=== PATIENT | male | born 1990 | race Caucasian/White ===

== ENCOUNTER 2021-04-11 10:42 | Emergency (ER) | payer MEDICAID, OTHER ==
[~2021-04-11] VITALS: Ht 175.3 cm; Wt 73.2 kg
[2021-04-11 10:44] VITALS: BP 124/68
== END 2021-04-11 14:03 | disposition home or self-care (01) ==
LOC: EMS 10:49
DX: S62.145A Nondisplaced fracture of body of hamate [unciform] bone, left wrist, initial encounter for closed fracture (principal); S50.12XA Contusion of left forearm, initial encounter; F17.210 Nicotine dependence, cigarettes, uncomplicated; F12.90 Cannabis use, unspecified, uncomplicated; V00.131A Fall from skateboard, initial encounter; Y93.51 Activity, roller skating (inline) and skateboarding; Y92.89 Other specified places as the place of occurrence of the external cause; Y99.8 Other external cause status
CPT/HCPCS: 99283

== ENCOUNTER 2024-12-25 18:58 | Emergency (ER) | payer MEDICAID ==
[~2024-12-25] VITALS: Ht 175.3 cm; Wt 72.7 kg
[2024-12-25 19:02] VITALS: BP 134/84; PULSE 68; RESP 16; TEMP 98.2; O2SAT 99
== END 2024-12-25 23:29 | disposition left against medical advice (07) ==
LOC: EMS 19:05
DX: F41.9 Anxiety disorder, unspecified (principal); Z53.21 Procedure and treatment not carried out due to patient leaving prior to being seen by health care provider

== ENCOUNTER 2024-12-30 13:38 | Emergency (ER) | payer MEDICAID ==
[~2024-12-30] VITALS: Ht 175.3 cm; Wt 68.2 kg
[2024-12-30 13:41] VITALS: BP 123/77; PULSE 62; RESP 16; TEMP 98.6; O2SAT 100
== END 2024-12-30 15:51 | disposition left against medical advice (07) ==
LOC: EMS 13:38
DX: F41.9 Anxiety disorder, unspecified (principal); Z53.21 Procedure and treatment not carried out due to patient leaving prior to being seen by health care provider

== ENCOUNTER 2024-12-30 17:45 | Emergency (ER) | payer MEDICAID ==
[~2024-12-30] VITALS: Ht 175.3 cm; Wt 68.8 kg
[2024-12-30 17:53] VITALS: BP 128/81; PULSE 70; RESP 16; TEMP 98.4; O2SAT 98
[2024-12-30 18:27] LABS: BASOPHILS % (AUTO) 0.5 % (0.0-2.0); EOSINOPHILS % (AUTO) 3.1 % (1.0-6.0); HEMATOCRIT 38.6 % (41-53); HEMOGLOBIN 13.1 g/dL (13.5-17.5); LYMPHOCYTES # (AUTO) 1.4 K/uL (1.0-4.8); LYMPHOCYTES % (AUTO) 20.5 % (22.0-44.0); MEAN CORPUSCULAR HEMOGLOBIN 31.6 pg (26.0-34.0); MEAN CORPUSCULAR HGB CONC 33.9 G/dL (31.0-37.0); MEAN CORPUSCULAR VOLUME 93 fL (80-100); MONOCYTES # (AUTO) 0.3 K/uL (0.1-1.0); MONOCYTES % (AUTO) 4.6 % (2.0-9.0); NEUTROPHILS # (AUTO) 4.9 K/uL (1.8-7.7); NEUTROPHILS % (AUTO) 71.3 % (40.0-70.0); PLATELET COUNT (AUTO) 264 K/uL (150-450); RED BLOOD CELL COUNT(AUTO) 4.13 MIL/uL (4.50-5.90); RED CELL DISTRIBUTION WIDTH 13.3 % (11.5-14.5); WHITE BLOOD COUNT (AUTO) 6.9 K/uL (4.5-11.0)
[2024-12-30 18:31] LABS: ANION GAP 8 mmol/L (8-16); CARBON DIOXIDE 28 mmol/L (22-29); CHLORIDE 100 mmol/L (98-107); GLOMERULAR FILTR. RATE CALC > 60 mL/min (>60); GLUCOSE,RANDOM 80 mg/dL (70-110); POTASSIUM 3.6 mmol/L (3.5-5.1); SODIUM SERUM 136 mmol/L (136-145); UREA NITROGEN, BLOOD 13 mg/dL (7-18)
[2024-12-30 18:40] LABS: ALCOHOL, BLOOD (SERUM) < 3 mg/dL (0-10)
== END 2024-12-30 19:00 | disposition home or self-care (01) ==
LOC: EMS 17:45
DX: F41.9 Anxiety disorder, unspecified (principal); F84.0 Autistic disorder; F17.210 Nicotine dependence, cigarettes, uncomplicated
CPT/HCPCS: 99283; 80048; 85025; G0480

== ENCOUNTER 2024-12-30 21:17 | Emergency (ER) | payer MEDICAID ==
[~2024-12-30] VITALS: Ht 175.3 cm; Wt 68.0 kg
[2024-12-30 21:25] VITALS: BP 141/83; PULSE 75; RESP 16; TEMP 97.4; O2SAT 98
== END 2024-12-30 21:36 | disposition left against medical advice (07) ==
LOC: EMS 21:17
DX: F41.9 Anxiety disorder, unspecified (principal); Z53.21 Procedure and treatment not carried out due to patient leaving prior to being seen by health care provider

== ENCOUNTER 2025-01-05 17:42 | Emergency (ER) | payer MEDICAID ==
[~2025-01-05] VITALS: Ht 175.3 cm; Wt 68.0 kg
[2025-01-05 18:04] VITALS: BP 159/80; PULSE 76; RESP 18; TEMP 98.4; O2SAT 98
[2025-01-05 18:40] LABS: BASOPHILS % (AUTO) 0.7 % (0.0-2.0); EOSINOPHILS % (AUTO) 2.9 % (1.0-6.0); HEMATOCRIT 37.4 % (41-53); HEMOGLOBIN 12.7 g/dL (13.5-17.5); LYMPHOCYTES # (AUTO) 1.5 K/uL (1.0-4.8); LYMPHOCYTES % (AUTO) 18.1 % (22.0-44.0); MEAN CORPUSCULAR HEMOGLOBIN 32.3 pg (26.0-34.0); MEAN CORPUSCULAR VOLUME 95 fL (80-100); MONOCYTES # (AUTO) 0.5 K/uL (0.1-1.0); MONOCYTES % (AUTO) 5.6 % (2.0-9.0); NEUTROPHILS # (AUTO) 5.9 K/uL (1.8-7.7); NEUTROPHILS % (AUTO) 72.7 % (40.0-70.0); PLATELET COUNT (AUTO) 273 K/uL (150-450); RED BLOOD CELL COUNT(AUTO) 3.93 MIL/uL (4.50-5.90); RED CELL DISTRIBUTION WIDTH 13.9 % (11.5-14.5); WHITE BLOOD COUNT (AUTO) 8.1 K/uL (4.5-11.0)
[2025-01-05 18:46] LABS: ANION GAP 1 mmol/L (8-16); CALCIUM, TOTAL 8.2 mg/dL (8.8-10.5); CARBON DIOXIDE 31 mmol/L (22-29); CHLORIDE 107 mmol/L (98-107); CREATININE 0.79 mg/dL (0.60-1.30); GLOMERULAR FILTR. RATE CALC > 60 mL/min (>60); GLUCOSE,RANDOM 83 mg/dL (70-110); SODIUM SERUM 139 mmol/L (136-145); UREA NITROGEN, BLOOD 13 mg/dL (7-18)
[2025-01-05 18:54] LABS: TROPONIN I-HIGH SENSITIVITY 5 ng/L (<76)
== END 2025-01-05 20:32 | disposition home or self-care (01) ==
LOC: EMS 17:42
DX: R07.9 Chest pain, unspecified (principal)
CPT/HCPCS: 99284; 80048; 84484; 85025; 36415; 93005; G0480

== ENCOUNTER 2025-01-05 20:44 | Inpatient (IN) | payer MEDICAID ==
[~2025-01-05] VITALS: Ht 172.7 cm; Wt 77.0 kg
[2025-01-05 22:26] LABS: GLUCOMETER DEV NAME(LOC) POC.BV; POC SARS-COV2 AG, FIA NEGATIVE (NEGATIVE)
[2025-01-05] MEDS ORDERED: ZOLPIDEM TARTRATE 10 MG TABLET PO PRN (23:00)
[2025-01-06 00:37] VITALS: BP 120/85; PULSE 65; RESP 18; TEMP 97.2; O2SAT 100
[2025-01-06 00:40] VITALS: BP 120/85; PULSE 65; RESP 18; TEMP 97.2; O2SAT 100
[2025-01-06 01:39] VITALS: BP 133/84; PULSE 78; RESP 19; TEMP 97.8; O2SAT 97
[2025-01-06 08:10] VITALS: BP 120/72; PULSE 67; RESP 16; TEMP 97.5; O2SAT 100
[2025-01-06 20:22] VITALS: BP 142/80; PULSE 81; RESP 18; TEMP 98.2; O2SAT 94
[2025-01-06] MEDS ORDERED: ONDANSETRON 4 MG TABLET PO PRN (21:15)
[2025-01-06] MEDS ORDERED: ACETAMINOPHEN 325 MG TABLET PO PRN (21:15)
[2025-01-06] MEDS ORDERED: DOCUSATE SODIUM 100 MG CAPSULE PO PRN (21:15)
[2025-01-06] MEDS ORDERED: LOPERAMIDE HCL 2 MG CAPSULE PO PRN (21:15)
[2025-01-06] MEDS ORDERED: BACITRACIN 28 GM OINTMENT TP PRN (21:15)
[2025-01-06] MEDS ORDERED: OMEPRAZOLE 20 MG CAPSULE PO PRN (21:15)
[2025-01-06] MEDS ORDERED: CloNIDine HCL 0.1 MG TABLET PO PRN (21:15)
[2025-01-06] MEDS ORDERED: BENZOCAINE/MENTHOL [CEPACOL] LOZENGE PO PRN (21:15)
[2025-01-06] MEDS ORDERED: ALBUTEROL SULFATE HFA 90 MCG/PUFF 8 GM INHALER IH PRN (21:15)
[2025-01-06] MEDS ORDERED: MAGNESIUM HYDROXIDE SUSPENSION 30 ML UDCUP PO PRN (21:15)
[2025-01-06] MEDS ORDERED: PETROLATUM,WHITE 28 GM JELLY TP PRN (21:15)
[2025-01-06] MEDS ORDERED: IBUPROFEN 600 MG TABLET PO PRN (21:15)
[2025-01-07 08:08] VITALS: BP 117/66; PULSE 60; RESP 16; TEMP 97.3; O2SAT 97
[2025-01-07 08:53] LABS: APPEARANCE,URINE CLEAR (CLEAR); BILIRUBIN,URINE NEGATIVE (NEGATIVE); COLOR,URINE COLORLESS (YELLOW); GLUCOSE, URINE (UA) NEGATIVE (NEGATIVE); KETONES,URINE NEGATIVE (NEGATIVE); LEUKOCYTE ESTERASE ,URINE NEGATIVE (NEGATIVE); NITRATE,URINE NEGATIVE (NEGATIVE); OCCULT BLOOD,URINE NEGATIVE (NEGATIVE); PROTEIN,URINE NEGATIVE (NEGATIVE); SPECIFIC GRAVITIY, URINE 1.007 (1.003-1.030); UROBILINOGEN,URINE <=1.0 mg/dL (<=1.0)
[2025-01-07 08:59] LABS: AMPHET/METH SCREEN,URINE NEGATIVE (NEGATIVE); BARBITURATE SCREEN, URINE NEGATIVE (NEGATIVE); BENZODIAZEPINES SCREEN,URINE NEGATIVE (NEGATIVE); CANNABINOID SCREEN,URINE NEGATIVE (NEGATIVE); COCAINE SCREEN,URINE NEGATIVE (NEGATIVE); METHADONE SCREEN, URINE NEGATIVE (NEGATIVE); OPIATE SCREEN,URINE NEGATIVE (NEGATIVE); PHENCYCLIDINE SCREEN,URINE NEGATIVE (NEGATIVE)
[2025-01-07 09:03] LABS: ALCOHOL, URINE DRUG SCREEN NEGATIVE (NEGATIVE)
[2025-01-07 20:13] VITALS: BP 136/75; PULSE 78; RESP 18; TEMP 97.4; O2SAT 98
[2025-01-08] MEDS: HALOPERIDOL 5 MG TABLET PO PRN (08:21)
[2025-01-08] MEDS: LORazepam 2 MG TABLET PO PRN (08:21)
[2025-01-08 08:37] VITALS: BP 117/68; PULSE 72; RESP 17; TEMP 97.2; O2SAT 97
[2025-01-08] MEDS: FLUoxetine HCL 20 MG CAPSULE PO SCH (09:29)
[2025-01-08] MEDS: DIVALPROEX SODIUM 500 MG DR TABLET PO SCH (09:29)
[2025-01-08 20:19] VITALS: BP 139/78; PULSE 79; RESP 17; TEMP 98.6
[2025-01-08] MEDS: OLANZapine 7.5 MG TABLET PO SCH (20:29)
[2025-01-09 08:02] VITALS: BP 103/62; PULSE 64; RESP 18; TEMP 97.7; O2SAT 98
[2025-01-09] MEDS: MAG HYDROX/ALUMINUM HYD/SIMETH ES 30 ML SUSPENSION UDCUP PO PRN (18:54)
[2025-01-09 20:32] VITALS: BP 130/75; PULSE 67; RESP 18; TEMP 98.3; O2SAT 99
[2025-01-10 08:22] VITALS: BP 100/68; PULSE 70; RESP 17; TEMP 97.5; O2SAT 98
[2025-01-10 20:32] VITALS: BP 120/75; PULSE 79; RESP 18; TEMP 97.5; O2SAT 100
[2025-01-11 08:09] VITALS: BP 112/65; PULSE 61; RESP 17; TEMP 97.5; O2SAT 99
[2025-01-11] MEDS ORDERED: DIVA-153 PO (09:26)
[2025-01-11] MEDS ORDERED: FLUO-418 PO (09:27)
[2025-01-11] MEDS ORDERED: OLAN7.5T22 PO (09:27)
== END 2025-01-11 11:20 | disposition home or self-care (01) | DRG 750 ==
LOC: B3A 22:46
PROVIDERS: ADMIT Psychiatry & Neurology Psychiatry; ATTEND Psychiatry & Neurology Psychiatry
PROC: GZHZZZZ Group Psychotherapy (ICD-10-PCS; principal; 2025-01-08)
PROC: GZ51ZZZ Individual Psychotherapy, Behavioral (ICD-10-PCS; 2025-01-08)
DX: F20.0 Paranoid schizophrenia (principal); F12.90 Cannabis use, unspecified, uncomplicated; F41.9 Anxiety disorder, unspecified; G47.00 Insomnia, unspecified; Z20.822 Contact with and (suspected) exposure to COVID-19; F84.0 Autistic disorder; F17.200 Nicotine dependence, unspecified, uncomplicated; F32.9 Major depressive disorder, single episode, unspecified
CPT/HCPCS: 80307; 81003

== ENCOUNTER 2025-01-11 18:52 | Inpatient (IN) | payer MEDICAID ==
[~2025-01-11] VITALS: Ht 175.3 cm; Wt 77.1 kg
[~2025-01-11 18:52] MED LIST: DIVA-153 PO; FLUO-418 PO; OLAN7.5T22 PO
[2025-01-11] MEDS: DIVALPROEX SODIUM 250 MG DR TABLET PO SCH (21:00)
[2025-01-11] MEDS: OLANZapine 7.5 MG TABLET PO SCH (21:00)
[2025-01-11 21:53] VITALS: BP 130/76; PULSE 80; RESP 16; TEMP 97.7; O2SAT 99
[2025-01-11 23:21] LABS: GLUCOMETER DEV NAME(LOC) POC.BV; POC SARS-COV2 AG, FIA NEGATIVE (NEGATIVE)
[2025-01-12] MEDS: LevETIRAcetam 500 MG TABLET PO SCH (08:18)
[2025-01-12] MEDS: NALTREXONE HCL 50 MG TABLET PO SCH (08:19)
[2025-01-12] MEDS: FLUoxetine HCL 20 MG CAPSULE PO SCH (08:19)
[2025-01-12 08:24] VITALS: BP 117/62; PULSE 62; RESP 18; TEMP 97.7; O2SAT 100
[2025-01-12 20:03] VITALS: BP 107/71; PULSE 65; RESP 18; TEMP 98.1; O2SAT 100
[2025-01-12] MEDS: LORazepam 2 MG TABLET PO PRN (21:27)
[2025-01-12] MEDS: ZOLPIDEM TARTRATE 10 MG TABLET PO PRN (21:28)
[2025-01-12] MEDS: HALOPERIDOL 5 MG TABLET PO PRN (21:28)
[2025-01-13 08:38] VITALS: BP 133/90; PULSE 77; RESP 17; TEMP 97.1; O2SAT 100
[2025-01-13] MEDS ORDERED: IBUPROFEN 600 MG TABLET PO PRN (11:45)
[2025-01-13] MEDS ORDERED: BACITRACIN 28 GM OINTMENT TP PRN (11:45)
[2025-01-13] MEDS ORDERED: CloNIDine HCL 0.1 MG TABLET PO PRN (11:45)
[2025-01-13] MEDS ORDERED: MAGNESIUM HYDROXIDE SUSPENSION 30 ML UDCUP PO PRN (11:45)
[2025-01-13] MEDS ORDERED: ONDANSETRON 4 MG TABLET PO PRN (11:45)
[2025-01-13] MEDS ORDERED: OMEPRAZOLE 20 MG CAPSULE PO PRN (11:45)
[2025-01-13] MEDS ORDERED: PETROLATUM,WHITE 28 GM JELLY TP PRN (11:45)
[2025-01-13] MEDS ORDERED: LOPERAMIDE HCL 2 MG CAPSULE PO PRN (11:45)
[2025-01-13] MEDS ORDERED: ACETAMINOPHEN 325 MG TABLET PO PRN (11:45)
[2025-01-13] MEDS ORDERED: MAG HYDROX/ALUMINUM HYD/SIMETH ES 30 ML SUSPENSION UDCUP PO PRN (11:45)
[2025-01-13] MEDS ORDERED: ALBUTEROL SULFATE HFA 90 MCG/PUFF 8 GM INHALER IH PRN (11:45)
[2025-01-13] MEDS ORDERED: DOCUSATE SODIUM 100 MG CAPSULE PO PRN (11:45)
[2025-01-13] MEDS ORDERED: BENZOCAINE/MENTHOL [CEPACOL] LOZENGE PO PRN (11:45)
[2025-01-13 20:22] VITALS: BP 113/68; PULSE 77; RESP 17; TEMP 97.3; O2SAT 98
[2025-01-14 08:09] VITALS: BP 123/78; PULSE 61; RESP 18; TEMP 97.1; O2SAT 97
[2025-01-14 21:00] VITALS: BP 124/71; PULSE 69; RESP 17; TEMP 98.1; O2SAT 98
[2025-01-15 08:06] VITALS: BP 113/75; PULSE 64; RESP 15; TEMP 97.9; O2SAT 100
[2025-01-15 20:06] VITALS: BP 133/69; PULSE 70; RESP 16; TEMP 97.8; O2SAT 100
[2025-01-16 07:53] VITALS: BP 118/75; PULSE 76; RESP 18; TEMP 97.5; O2SAT 99
[2025-01-16 08:06] VITALS: BP 118/75; PULSE 76; RESP 18; TEMP 97.5; O2SAT 99
[2025-01-16 09:31] LABS: BASOPHILS % (AUTO) 0.4 % (0.0-2.0); EOSINOPHILS % (AUTO) 2.7 % (1.0-6.0); HEMOGLOBIN 13.4 g/dL (13.5-17.5); LYMPHOCYTES # (AUTO) 1.1 K/uL (1.0-4.8); LYMPHOCYTES % (AUTO) 13.5 % (22.0-44.0); MEAN CORPUSCULAR HEMOGLOBIN 32.2 pg (26.0-34.0); MEAN CORPUSCULAR HGB CONC 33.4 G/dL (31.0-37.0); MEAN CORPUSCULAR VOLUME 96 fL (80-100); MONOCYTES # (AUTO) 0.6 K/uL (0.1-1.0); MONOCYTES % (AUTO) 6.7 % (2.0-9.0); NEUTROPHILS # (AUTO) 6.4 K/uL (1.8-7.7); NEUTROPHILS % (AUTO) 76.7 % (40.0-70.0); PLATELET COUNT (AUTO) 223 K/uL (150-450); RED BLOOD CELL COUNT(AUTO) 4.15 MIL/uL (4.50-5.90); RED CELL DISTRIBUTION WIDTH 14.2 % (11.5-14.5); WHITE BLOOD COUNT (AUTO) 8.4 K/uL (4.5-11.0)
[2025-01-16 20:23] VITALS: BP 131/76; PULSE 85; RESP 17; TEMP 98.2; O2SAT 95
[2025-01-17 09:04] VITALS: BP 109/69; PULSE 65; RESP 17; TEMP 96.9; O2SAT 98
[2025-01-17 20:14] VITALS: BP 134/86; PULSE 91; RESP 17; TEMP 98; O2SAT 99
[2025-01-18 08:01] VITALS: BP 113/72; PULSE 67; RESP 18; TEMP 97.5; O2SAT 100
[2025-01-18 20:06] VITALS: BP 117/74; PULSE 76; RESP 16; TEMP 96.2; O2SAT 100
[2025-01-19 09:25] VITALS: BP 112/72; PULSE 71; RESP 17; TEMP 97.7; O2SAT 100
[2025-01-19 20:38] VITALS: BP 117/78; PULSE 72; RESP 17; TEMP 97.5; O2SAT 100
[2025-01-20 08:04] VITALS: BP 121/74; PULSE 67; RESP 18; TEMP 98.1; O2SAT 98
[2025-01-20 20:10] VITALS: BP 125/75; PULSE 79; RESP 17; TEMP 97.3; O2SAT 100
[2025-01-21 08:20] VITALS: BP 113/72; PULSE 65; RESP 16; TEMP 98.1; O2SAT 97
[2025-01-21 20:08] VITALS: BP 121/77; PULSE 67; RESP 17; TEMP 97.1; O2SAT 100
[2025-01-22 20:11] VITALS: BP 119/68; PULSE 75; RESP 18; TEMP 97.9; O2SAT 97
[2025-01-23 09:56] VITALS: BP 129/71; PULSE 89; RESP 16; TEMP 97.5; O2SAT 99
[2025-01-23 20:09] VITALS: BP 124/81; PULSE 60; RESP 18; TEMP 98; O2SAT 100
[2025-01-24 08:41] VITALS: BP 123/79; PULSE 71; RESP 18; TEMP 97.2; O2SAT 97
[2025-01-24 21:08] VITALS: BP 127/82; PULSE 83; RESP 18; TEMP 97.7
[2025-01-25 08:03] VITALS: BP 139/68; PULSE 61; RESP 16; TEMP 98.3; O2SAT 100
[2025-01-25 20:05] VITALS: BP 129/81; PULSE 60; RESP 16; TEMP 97.4; O2SAT 100
[2025-01-26 08:29] VITALS: BP 123/79; PULSE 61; RESP 18; TEMP 97.4; O2SAT 100
[2025-01-26 20:49] VITALS: BP 110/75; PULSE 73; RESP 17; TEMP 97.3; O2SAT 99
[2025-01-27 12:46] VITALS: BP 119/71; PULSE 66; RESP 16; TEMP 98.2; O2SAT 99
[2025-01-28] MEDS: INFLUENZA VIRUS VACCINE TVS (6MO+) 2024-25/PF 45 MCG/0.5 ML SYRINGE IM. ONE (06:30)
[2025-01-28 10:23] VITALS: BP 101/71; PULSE 53; RESP 18; TEMP 97.2; O2SAT 100
[2025-01-28 20:36] VITALS: BP 105/71; PULSE 61; RESP 15; TEMP 97.5; O2SAT 100
[2025-01-29 09:14] VITALS: BP 114/76; PULSE 64; RESP 17; TEMP 97.3; O2SAT 100
[2025-01-29] MEDS ORDERED: LEVE-71 PO (12:29)
[2025-01-29] MEDS ORDERED: NALT50TA33 PO (12:30)
== END 2025-01-29 16:29 | disposition home or self-care (01) | DRG 750 ==
LOC: B3A 19:34
PROVIDERS: ADMIT Psychiatry & Neurology Psychiatry; ATTEND Psychiatry & Neurology Psychiatry
DX: F25.9 Schizoaffective disorder, unspecified (principal); F15.10 Other stimulant abuse, uncomplicated; Z71.6 Tobacco abuse counseling; F32.A Depression, unspecified; Z20.822 Contact with and (suspected) exposure to COVID-19; F17.200 Nicotine dependence, unspecified, uncomplicated; F41.9 Anxiety disorder, unspecified; G47.00 Insomnia, unspecified; F84.0 Autistic disorder; F94.0 Selective mutism; Z53.20 Procedure and treatment not carried out because of patient's decision for unspecified reasons
CPT/HCPCS: 85025

== ENCOUNTER 2025-01-31 16:31 | Inpatient (IN) | payer MEDICAID ==
[~2025-01-31] VITALS: Ht 175.3 cm; Wt 79.9 kg
[~2025-01-31 16:31] MED LIST changes: +LEVE-71 PO; +NALT50TA33 PO
[2025-01-31 17:08] LABS: COVID AG,FIA SOURCE NASAL SWAB
[2025-01-31 17:30] LABS: SARS-COV2 (COVID) ANTIGEN,FIA Negative (Negative)
[2025-02-01 02:32] VITALS: O2SAT 99
[2025-02-01 04:57] VITALS: BP 125/85; PULSE 61; RESP 18; TEMP 97.9
[2025-02-01 08:06] VITALS: BP 122/76; PULSE 77; RESP 16; TEMP 97.6; O2SAT 100
[2025-02-01] MEDS: LevETIRAcetam 500 MG TABLET PO SCH (16:07)
[2025-02-01 20:15] VITALS: BP 117/60; PULSE 65; RESP 16; TEMP 97.6; O2SAT 97
[2025-02-01] MEDS: DIVALPROEX SODIUM 500 MG ER TABLET PO SCH (20:22)
[2025-02-01] MEDS: OLANZapine 7.5 MG TABLET PO SCH (20:23)
[2025-02-02] MEDS: NALTREXONE HCL 50 MG TABLET PO SCH (08:21)
[2025-02-02] MEDS: FLUoxetine HCL 20 MG CAPSULE PO SCH (08:22)
[2025-02-02 08:42] VITALS: BP 127/73; PULSE 60; RESP 17; TEMP 97.6; O2SAT 100
[2025-02-02 20:29] VITALS: BP 120/70; PULSE 68; RESP 17; TEMP 97.4; O2SAT 100
[2025-02-02] MEDS: LORazepam 2 MG TABLET PO PRN (21:31)
[2025-02-02] MEDS: HALOPERIDOL 5 MG TABLET PO PRN (21:31)
[2025-02-02] MEDS: ZOLPIDEM TARTRATE 10 MG TABLET PO PRN (21:31)
[2025-02-03 08:12] VITALS: BP 110/59; PULSE 64; RESP 18; TEMP 98; O2SAT 97
[2025-02-03 20:05] VITALS: BP 116/75; PULSE 83; RESP 18; TEMP 97.8; O2SAT 93
[2025-02-03] MEDS ORDERED: BACITRACIN 28 GM OINTMENT TP PRN (20:45)
[2025-02-03] MEDS ORDERED: ACETAMINOPHEN 325 MG TABLET PO PRN (20:45)
[2025-02-03] MEDS ORDERED: LOPERAMIDE HCL 2 MG CAPSULE PO PRN (20:45)
[2025-02-03] MEDS ORDERED: ONDANSETRON 4 MG TABLET PO PRN (20:45)
[2025-02-03] MEDS ORDERED: MAG HYDROX/ALUMINUM HYD/SIMETH ES 30 ML SUSPENSION UDCUP PO PRN (20:45)
[2025-02-03] MEDS ORDERED: CloNIDine HCL 0.1 MG TABLET PO PRN (20:45)
[2025-02-03] MEDS ORDERED: ALBUTEROL SULFATE HFA 90 MCG/PUFF 8 GM INHALER IH PRN (20:45)
[2025-02-03] MEDS ORDERED: PETROLATUM,WHITE 28 GM JELLY TP PRN (20:45)
[2025-02-03] MEDS ORDERED: BENZOCAINE/MENTHOL [CEPACOL] LOZENGE PO PRN (20:45)
[2025-02-03] MEDS ORDERED: MAGNESIUM HYDROXIDE SUSPENSION 30 ML UDCUP PO PRN (20:45)
[2025-02-03] MEDS ORDERED: DOCUSATE SODIUM 100 MG CAPSULE PO PRN (20:45)
[2025-02-03] MEDS ORDERED: OMEPRAZOLE 20 MG CAPSULE PO PRN (20:45)
[2025-02-03] MEDS ORDERED: IBUPROFEN 600 MG TABLET PO PRN (20:45)
[2025-02-04 06:03] VITALS: RESP 18
[2025-02-04 08:03] VITALS: RESP 16
[2025-02-04 12:19] VITALS: RESP 16
[2025-02-04 20:36] VITALS: BP 128/77; PULSE 76; RESP 16; TEMP 98.2; O2SAT 99
[2025-02-05 08:38] VITALS: BP 113/69; PULSE 64; RESP 17; TEMP 97.6; O2SAT 98
[2025-02-05 20:29] VITALS: BP 124/75; PULSE 74; RESP 16; TEMP 97.4; O2SAT 98
[2025-02-06 08:07] VITALS: BP 117/70; PULSE 76; RESP 16; TEMP 97.5; O2SAT 99
[2025-02-06 20:18] VITALS: BP 111/72; PULSE 57; RESP 17; TEMP 97.4; O2SAT 99
[2025-02-07 08:47] VITALS: BP 117/70; PULSE 68; RESP 17; TEMP 97.7; O2SAT 98
[2025-02-07 20:02] VITALS: BP 129/79; PULSE 73; RESP 16; TEMP 97.3; O2SAT 97
[2025-02-08 08:05] VITALS: BP 111/70; PULSE 60; RESP 17; TEMP 97.9; O2SAT 99
[2025-02-08 20:26] VITALS: BP 146/77; PULSE 71; RESP 16; TEMP 97.7; O2SAT 98
[2025-02-09 08:43] VITALS: BP 119/66; PULSE 63; RESP 18; TEMP 97.6; O2SAT 99
[2025-02-09 20:06] VITALS: BP 120/73; PULSE 63; RESP 17; TEMP 98.1; O2SAT 97
[2025-02-10 08:07] VITALS: BP 139/83; PULSE 60; RESP 18; TEMP 97.6; O2SAT 100
[2025-02-10 20:25] VITALS: BP 104/69; PULSE 77; RESP 17; TEMP 97.1; O2SAT 100
[2025-02-11 08:22] VITALS: BP 119/82; PULSE 60; RESP 14; TEMP 97.3; O2SAT 100
[2025-02-12 08:46] VITALS: BP 122/80; PULSE 58; RESP 17; TEMP 97.3; O2SAT 99
[2025-02-12 20:44] VITALS: BP 123/84; PULSE 60; RESP 16; TEMP 97.3; O2SAT 100
[2025-02-13 08:43] VITALS: BP 115/69; PULSE 60; RESP 18; TEMP 97.4; O2SAT 99
[2025-02-13 20:29] VITALS: BP 121/76; PULSE 77; RESP 18; TEMP 97.5; O2SAT 99
[2025-02-14 08:32] VITALS: BP 117/74; PULSE 69; RESP 17; TEMP 97.4; O2SAT 99
[2025-02-14 20:19] VITALS: BP 118/75; PULSE 67; RESP 16; TEMP 97.4; O2SAT 100
[2025-02-15 08:02] VITALS: BP 111/75; PULSE 66; RESP 16; TEMP 98.3; O2SAT 99
[2025-02-15 20:11] VITALS: BP 123/76; PULSE 75; RESP 18; TEMP 98.3; O2SAT 97
[2025-02-16 08:08] VITALS: BP 112/72; PULSE 66; RESP 17; TEMP 97.5; O2SAT 99
[2025-02-16 20:09] VITALS: BP 111/73; PULSE 60; RESP 18; TEMP 97.7; O2SAT 100
[2025-02-17 08:05] VITALS: BP 109/74; PULSE 61; RESP 16; TEMP 98.3; O2SAT 100
[2025-02-17 20:41] VITALS: BP 109/67; PULSE 70; RESP 20; TEMP 97.8; O2SAT 98
[2025-02-18 08:07] VITALS: BP 116/63; PULSE 62; RESP 18; TEMP 98.2; O2SAT 99
[2025-02-18 20:09] VITALS: BP 112/73; PULSE 55; RESP 16; TEMP 97.4; O2SAT 98
[2025-02-19 08:27] VITALS: BP 117/77; PULSE 65; RESP 17; TEMP 98; O2SAT 98
[2025-02-19 20:56] VITALS: BP 114/73; PULSE 74; RESP 16; TEMP 97.8; O2SAT 98
[2025-02-20 08:53] VITALS: BP 115/69; PULSE 66; RESP 17; TEMP 97.5; O2SAT 99
[2025-02-20 21:05] VITALS: BP 119/78; PULSE 60; RESP 16; TEMP 98; O2SAT 100
[2025-02-21 10:11] VITALS: BP_SYST 103; BP_SYST 105; BP_DIAS 55; BP_DIAS 63; PULSE 65; PULSE 98; RESP 14; TEMP 97.7; O2SAT 97; O2SAT 98
== END 2025-02-21 16:20 | DRG 750 ==
LOC: EMS 16:31 → B3A 02-01 02:30
PROVIDERS: ADMIT Psychiatry & Neurology Psychiatry; ATTEND Psychiatry & Neurology Psychiatry
DX: F20.9 Schizophrenia, unspecified (principal); R45.851 Suicidal ideations; F15.10 Other stimulant abuse, uncomplicated; Z20.822 Contact with and (suspected) exposure to COVID-19; F41.9 Anxiety disorder, unspecified; G47.00 Insomnia, unspecified; F84.0 Autistic disorder; F17.200 Nicotine dependence, unspecified, uncomplicated; F32.A Depression, unspecified
CPT/HCPCS: 87081; 93005; 99285; Z7502; Z7610

== ENCOUNTER 2025-02-22 10:36 | Inpatient (IN) | payer MEDICAID, OTHER ==
[~2025-02-22] VITALS: Ht 175.3 cm; Wt 77.0 kg
[~2025-02-22 10:36] MED LIST changes: -NALT50TA33 PO
[2025-02-22 11:15] LABS: COVID AG,FIA SOURCE NASAL SWAB
[2025-02-22 11:58] LABS: SARS-COV2 (COVID) ANTIGEN,FIA Negative (Negative)
[2025-02-22 15:40] VITALS: O2SAT 96
[2025-02-23 00:54] VITALS: BP 133/82; PULSE 80; RESP 18; TEMP 97.3; O2SAT 100
[2025-02-23 08:16] VITALS: BP 113/79; PULSE 73; RESP 17; TEMP 98.1; O2SAT 98
[2025-02-23] MEDS: FLUoxetine HCL 20 MG CAPSULE PO SCH (14:51)
[2025-02-23] MEDS: LevETIRAcetam 500 MG TABLET PO SCH (17:06)
[2025-02-23 20:13] VITALS: BP 139/98; PULSE 63; RESP 16; TEMP 97.3; O2SAT 97
[2025-02-23] MEDS: DIVALPROEX SODIUM 500 MG ER TABLET PO SCH (20:40)
[2025-02-23] MEDS: OLANZapine 7.5 MG TABLET PO SCH (20:40)
[2025-02-24] MEDS: LORazepam 2 MG TABLET PO PRN (07:51)
[2025-02-24] MEDS: haloperidoL 5 MG TABLET PO PRN (07:51)
[2025-02-24 08:00] VITALS: RESP 16
[2025-02-24 20:22] VITALS: BP 109/75; PULSE 62; RESP 16; TEMP 96.8; O2SAT 99
[2025-02-25 09:56] VITALS: BP 133/85; PULSE 72; RESP 16; TEMP 97.8; O2SAT 97
[2025-02-25 20:14] VITALS: BP 123/81; PULSE 63; RESP 18; TEMP 97.9
[2025-02-26 08:33] VITALS: BP 119/81; PULSE 60; RESP 17; TEMP 97.5; O2SAT 100
[2025-02-26 20:16] VITALS: BP 126/88; PULSE 67; RESP 18; TEMP 98; O2SAT 99
[2025-02-26] MEDS: ZOLPIDEM TARTRATE 10 MG TABLET PO PRN (21:07)
[2025-02-27 10:06] VITALS: BP 106/58; PULSE 69; RESP 18; TEMP 97.9; O2SAT 98
== END 2025-02-27 11:45 | disposition home or self-care (01) | DRG 750 ==
LOC: EMS 10:37 → B3A 17:04
PROVIDERS: ADMIT Psychiatry & Neurology Psychiatry; ATTEND Psychiatry & Neurology Psychiatry
PROC: GZ52ZZZ Individual Psychotherapy, Cognitive (ICD-10-PCS; principal; 2025-02-23)
DX: F20.9 Schizophrenia, unspecified (principal); R45.851 Suicidal ideations; F15.10 Other stimulant abuse, uncomplicated; F41.9 Anxiety disorder, unspecified; G47.00 Insomnia, unspecified; Z20.822 Contact with and (suspected) exposure to COVID-19; F84.0 Autistic disorder; K59.00 Constipation, unspecified; Z79.899 Other long term (current) drug therapy; Z72.0 Tobacco use; Z71.6 Tobacco abuse counseling
CPT/HCPCS: 87081; 93005; 99285; Z7502; Z7610

== ENCOUNTER → 2025-02-27 | Emergency (ER) | payer MEDICAID, OTHER ==
[~2025-02-27] VITALS: Ht 175.3 cm; Wt 68.2 kg
[2025-02-27 19:33] VITALS: BP 141/70; PULSE 89; RESP 18; TEMP 98.6; O2SAT 100
[2025-02-27 21:22] LABS: COVID AG,FIA SOURCE NASAL SWAB
[2025-02-27 21:44] LABS: SARS-COV2 (COVID) ANTIGEN,FIA Negative (Negative)
[2025-02-27] MEDS: OLANZapine 5 MG TABLET PO ONE (21:44)
== END | disposition home or self-care (01) ==
LOC: EMS 19:25
DX: R45.851 Suicidal ideations (principal); F41.9 Anxiety disorder, unspecified; F32.A Depression, unspecified; F15.90 Other stimulant use, unspecified, uncomplicated; Z79.899 Other long term (current) drug therapy; Z20.822 Contact with and (suspected) exposure to COVID-19
CPT/HCPCS: 99283

== ENCOUNTER 2025-02-28 16:11 | Emergency (ER) | payer OTHER ==
[~2025-02-28] VITALS: Ht 175.3 cm; Wt 70.5 kg
[2025-02-28 16:27] VITALS: BP 152/97; PULSE 72; RESP 18; TEMP 97.5; O2SAT 99
== END 2025-02-28 18:15 | disposition home or self-care (01) ==
LOC: EDBD 16:11 → EMS 16:11 → MERGE 16:11 → EMS 18:15
DX: F41.9 Anxiety disorder, unspecified (principal); Z00.8 Encounter for other general examination
CPT/HCPCS: 71045; 93005; 99283